=== PATIENT | female | born 1970 | race Caucasian/White ===

== ENCOUNTER 2017-08-28 09:41 | Emergency (ER) | payer OTHER ==
[~2017-08-28] VITALS: Ht 165.1 cm; Wt 91.2 kg
[~2017-08-28 09:41] MED LIST: ALBU90OI; ALBU90OI INH; AMIT25 PO; AMOCLA875 PO; Advil200 M1 PO; Antivert25 MG PO; BENZ.5 PO; BENZ100A PO; Bactrim Ds Tab1 EACH PO; CIPR500 PO; CIPRO500 MG PO; CLAR500 PO; CLON1 PO; CLON2 PO; CODGUAEL PO; CYCL10 PO; DULO30; DULO60 PO; Desyrel150 MG; ERGO50000 PO; ESCI20; ESTR1; ESTR2; ESTR2 PO; FLUV50 PO; HALO5 PO; HYDACE5 PO; HYDGUAL120 PO; HYDHCL25; HYDHCL25 PO; HYDR1TAB94 PO; Hydrocodone-Ap1 EA23 PO; IBUP600 PO; IBUP800 PO; LACT10SY PO; LAMO100; LAMO100 PO; LAVAP17G PO; LEVFLO500 PO; METPRE4DP PO; NAPR500 PO; Norco 5-325 Ta1 EACH PO; Nystatin15 GM TOP; OMEP40CA12 PO; OXYACE5T PO; Omeprazole20 M1 PO; PRAZ2 PO; PROACE100 PO; PROM25 PO; Prednisone20 MG PO; Promacta25 MG PO; QUDEXY XR100 MG PO; RANI150 PO; RXOXYACE PO; RXPROACE PO; Robaxin500 MG PO; SAPHRIS; SUCR1 PO; SULTRIDS PO; SULTRISS PO; TOPI100 PO; TRAM50 PO; TRAZ100 PO; TRAZ50; Ventolin/Prove6.7 GM INH
[2017-08-28] MEDS ORDERED: LATUDA80 MG (10:34)
[2017-08-28] MEDS ORDERED: LATUDA60 MG (10:34)
[2017-08-28] MEDS ORDERED: TRAZ50 (10:34)
[2017-08-28] MEDS ORDERED: RANI150 (10:34)
[2017-08-28] MEDS ORDERED: TOPI100 (10:34)
[2017-08-28] MEDS ORDERED: Cyclobenzaprine5 MG PO (11:05)
[2017-08-28] MEDS ORDERED: ALBU90OI INH (11:05)
== END 2017-08-28 11:14 | disposition home or self-care (01) ==
LOC: ER 09:41
DX: R05 Cough (principal); M54.6 Pain in thoracic spine; Z79.899 Other long term (current) drug therapy; Z88.8 Allergy status to other drugs, medicaments and biological substances; F31.9 Bipolar disorder, unspecified
CPT/HCPCS: 71046; 99283

== ENCOUNTER 2018-08-25 15:35 | Emergency (ER) | payer OTHER ==
[~2018-08-25] VITALS: Ht 165.1 cm; Wt 72.6 kg
[~2018-08-25 15:35] MED LIST changes: +Cyclobenzaprine5 MG PO; +LATUDA60 MG; +LATUDA80 MG; +RANI150; +TOPI100
[2018-08-25 16:11] LABS: BASOPHILS ABSOLUTE AUTO 0.04 K/mm3 (0.00-0.23); BASOPHILS PERCENT AUTO 0 % (0-2); EOSINOPHILS ABSOLUTE AUTO 0.13 K/mm3 (0.00-0.68); EOSINOPHILS PERCENT AUTO 1 % (0-6); Hematocrit 38.2 % (33.0-51.0); Hemoglobin 12.2 g/dL (11.5-16.0); IMMATURE GRAN ABSOLUTE AUTO 0.03 K/mm3 (0.00-0.10); IMMATURE GRAN PERCENT AUTO 0 % (0-1); LYMPHOCYTES ABSOLUTE AUTO 3.47 K/mm3 (0.84-5.20); LYMPHOCYTES PERCENT AUTO 35 % (21-46); MONOCYTES ABSOLUTE AUTO 0.52 K/mm3 (0.16-1.47); MONOCYTES PERCENT AUTO 5 % (4-13); Mean Corpuscular HGB 29.1 pg (26.0-34.0); Mean Corpuscular HGB Conc 31.9 g/dL (31.5-36.5); Mean Corpuscular Volume 91 fL (80-100); Mean Platelet Volume 9.8 fL (9.1-12.4); NEUTROPHILS ABSOLUTE AUTO 5.86 K/mm3 (1.96-9.15); NEUTROPHILS PERCENT AUTO 58 % (41-73); Platelet Count 320 K/mm3 (150-400); RDW Coefficient Variation 12.9 % (11.7-14.2); RDW Standard Deviation 43.2 fL (35.1-46.3); Red Blood Cell Count 4.19 M/mm3 (3.80-5.20); White Blood Cell Count 10.05 K/mm3 (4.00-11.30)
[2018-08-25 16:34] LABS: Source, Urine Clean Catch
[2018-08-25 16:36] LABS: Bilirubin, Urine Neg (Neg); Blood, Urine Neg (Neg); Glucose Qualitative, Urine Neg (Neg); Ketones, Urine Neg (Neg); Leukocyte Esterase, Urine 1+ (Neg); Nitrite, Urine Neg (Neg); Protein, Urine Neg (Neg); Specific Gravity, Urine 1.005 (1.003-1.022); Urobilinogen, Urine NORM (Normal)
[2018-08-25 16:39] LABS: Alanine Aminotransfer (ALT/SGP 29 U/L (12-78); Albumin, Blood 3.5 g/dL (3.4-5.0); Albumin/Globulin Ratio 1.1 (0.8-1.8); Alk Phos 71 U/L (50-136); Anion Gap 7 mmol/L (6-16); Aspartate Aminotrans (AST/SGOT 15 U/L (12-37); Bilirubin, Total 0.2 mg/dL (0.1-1.0); Blood Urea Nitrogen 8 mg/dL (8-24); Bun/Creatinine Ratio 8.8 (12.0-20.0); CO2, Blood 23 mmol/L (21-32); Chloride, Blood 111 mmol/L (98-108); Creatinine, Blood 0.91 mg/dL (0.40-1.00); Globulin, Blood 3.2 g/dL (2.2-4.0); Glomerular Filtration Rate >60 (60-); Glucose, Blood 89 mg/dL (70-99); Potassium, Blood 3.9 mmol/L (3.5-5.5); Sodium, Blood 141 mmol/L (136-145); Total Protein, Blood 6.7 g/dL (6.4-8.2)
[2018-08-25 16:43] LABS: Appearance, Urine Clear (Clear); Color, Urine Yellow (P-Yellow)
[2018-08-25 16:44] LABS: Red Blood Cells, Urine 0-2 /hpf (0-2); Squamous Epithelial Cells Few /hpf (Few); White Blood Cells, Urine 0-2 /hpf (0-5)
[2018-08-25 16:47] LABS: Bacteria Few /hpf
[2018-08-25] MEDS ORDERED: Bactrim Ds Tab1 EACH PO (16:57)
[2018-08-25] MEDS ORDERED: Zantac150 MG PO (16:57)
== END 2018-08-25 18:03 | disposition home or self-care (01) ==
LOC: ER 15:35
PROVIDERS: Physician Assistant
DX: N39.0 Urinary tract infection, site not specified (principal); R10.33 Periumbilical pain
CPT/HCPCS: 36415; 80053; 81001; 83690; 85025; 87086; 96360; 99283-25; J7030

== ENCOUNTER → 2018-09-08 | Outpatient (CLI) | payer OTHER ==
[~2018-09-08] MED LIST changes: +Zantac150 MG PO
== END ==
LOC: LAB 11:51 → LAB SHORT 11:51
DX: R39.89 Other symptoms and signs involving the genitourinary system (principal); Z87.440 Personal history of urinary (tract) infections
CPT/HCPCS: 87086

== ENCOUNTER 2018-10-02 13:01 | Emergency (ER) | payer OTHER ==
[~2018-10-02] VITALS: Ht 165.1 cm; Wt 72.1 kg
[2018-10-02] MEDS ORDERED: TOPI100 PO ×2 (16:48→17:04)
[2018-10-02] MEDS ORDERED: PRAZ1 PO (17:03)
[2018-10-02] MEDS ORDERED: Trazodone HCl300 MG PO (17:03)
[2018-10-02] MEDS ORDERED: LATUDA20 MG PO (17:03)
[2019-01-26] MEDS ORDERED: Ventolin/Prove6.7 GM INH (14:33)
[2019-01-26] MEDS ORDERED: ERGO50000 PO (14:34)
[2019-01-26] MEDS ORDERED: OMEPRAZOLE20 MG PO (14:34)
[2019-01-26] MEDS ORDERED: LATUDA80 MG PO (14:34)
[2019-01-26] MEDS ORDERED: CYCL10 PO (14:34)
[2019-01-26] MEDS ORDERED: TRAZ150T57 PO (14:35)
[2019-01-26] MEDS ORDERED: PRAZ1 PO (14:35)
[2019-01-26] MEDS ORDERED: TOPI100 PO (14:36)
== END 2018-10-02 19:34 | disposition home or self-care (01) ==
LOC: ER 13:01
DX: G43.909 Migraine, unspecified, not intractable, without status migrainosus (principal); Z88.8 Allergy status to other drugs, medicaments and biological substances; Z79.899 Other long term (current) drug therapy; F31.9 Bipolar disorder, unspecified; J45.909 Unspecified asthma, uncomplicated
CPT/HCPCS: 96372; 99283-25; J0780; J1100; Q0163

== ENCOUNTER 2019-02-02 11:40 | Day surgery (SDC) | payer OTHER ==
[~2019-02-02] VITALS: Ht 165.1 cm; Wt 66.8 kg
[~2019-02-02 11:40] MED LIST changes: +LATUDA20 MG PO; +LATUDA80 MG PO; +OMEPRAZOLE20 MG PO; +PRAZ1 PO; +TRAZ150T57 PO; +Trazodone HCl300 MG PO
== END 2019-02-02 13:40 | disposition home or self-care (01) ==
LOC: ORSCSDS 11:40
PROVIDERS: Internal Medicine Gastroenterology
PROC: 0DB58ZX Excision of Esophagus, Via Natural or Artificial Opening Endoscopic, Diagnostic (ICD-10-PCS; principal; 2019-02-02 13:00)
PROC: 0D757ZZ Dilation of Esophagus, Via Natural or Artificial Opening (ICD-10-PCS; principal; 2019-02-02 13:00)
DX: K22.70 Barrett's esophagus without dysplasia (principal); R10.13 Epigastric pain; K44.9 Diaphragmatic hernia without obstruction or gangrene; R13.19 Other dysphagia; J45.909 Unspecified asthma, uncomplicated; F32.9 Major depressive disorder, single episode, unspecified; Z79.899 Other long term (current) drug therapy
CPT/HCPCS: 88305; J2704; J7120

== ENCOUNTER 2020-09-23 09:14 | Day surgery (SDC) | payer OTHER ==
[~2020-09-23] VITALS: Ht 165.1 cm; Wt 68.2 kg
[~2020-09-23 09:14] MED LIST changes: +FERROUS SULFAT325 M3 PO; +LATUDA120 M1 PO; +Oxybutynin Chlo10 MG PO; +REXULTI0.5 MG PO; +VITAMIN D5000 UNIT PO
== END 2020-09-23 11:26 | disposition home or self-care (01) ==
LOC: ORSCSDS 09:14
PROVIDERS: Internal Medicine Gastroenterology
PROC: 0DJD8ZZ Inspection of Lower Intestinal Tract, Via Natural or Artificial Opening Endoscopic (ICD-10-PCS; principal; 2020-09-23 11:15)
DX: Z12.11 Encounter for screening for malignant neoplasm of colon (principal); Z86.010 Personal history of colon polyps; J45.909 Unspecified asthma, uncomplicated; K21.9 Gastro-esophageal reflux disease without esophagitis; E11.9 Type 2 diabetes mellitus without complications; Z79.899 Other long term (current) drug therapy
CPT/HCPCS: 82947; J2704; J7120

== ENCOUNTER → 2020-12-13 | Outpatient (CLI) | payer OTHER | END | disposition home or self-care (01) | LOC: LAB 16:00 → LAB SHORT 16:00 | DX: E55.9 Vitamin D deficiency, unspecified (principal) | CPT/HCPCS: 82306 ==

== ENCOUNTER → 2021-11-24 | Outpatient (CLI) | payer OTHER | END | disposition home or self-care (01) | LOC: LAB SHORT 13:57 → LAB 13:57 | DX: R10.9 Unspecified abdominal pain (principal) | CPT/HCPCS: 87338 ==

== ENCOUNTER 2021-12-06 13:15 | Emergency (ER) | payer OTHER ==
[~2021-12-06] VITALS: Ht 165.1 cm; Wt 71.7 kg
[2021-12-06 14:22] LABS: BASOPHILS ABSOLUTE AUTO 0.04 K/mm3 (0.00-0.23); BASOPHILS PERCENT AUTO 1 % (0-2); EOSINOPHILS ABSOLUTE AUTO 0.12 K/mm3 (0.00-0.68); EOSINOPHILS PERCENT AUTO 2 % (0-6); Hematocrit 37.1 % (33.0-51.0); Hemoglobin 12.4 g/dL (11.5-16.0); IMMATURE GRAN ABSOLUTE AUTO 0.02 K/mm3 (0.00-0.10); IMMATURE GRAN PERCENT AUTO 0 % (0-1); LYMPHOCYTES ABSOLUTE AUTO 3.01 K/mm3 (0.84-5.20); LYMPHOCYTES PERCENT AUTO 38 % (21-46); MONOCYTES PERCENT AUTO 5 % (4-13); Mean Corpuscular HGB 29.3 pg (26.0-34.0); Mean Corpuscular HGB Conc 33.4 g/dL (31.5-36.5); Mean Corpuscular Volume 88 fL (80-100); Mean Platelet Volume 9.6 fL (9.1-12.4); NEUTROPHILS ABSOLUTE AUTO 4.24 K/mm3 (1.96-9.15); NEUTROPHILS PERCENT AUTO 54 % (41-73); Platelet Count 273 K/mm3 (150-400); RDW Coefficient Variation 13.1 % (11.7-14.2); Red Blood Cell Count 4.23 M/mm3 (3.80-5.20); White Blood Cell Count 7.83 K/mm3 (4.00-11.30)
[2021-12-06 14:38] LABS: Albumin, Blood 3.5 g/dL (3.4-5.0); Albumin/Globulin Ratio 1.2 (0.8-1.8); Bilirubin, Total 0.3 mg/dL (0.1-1.0); Bun/Creatinine Ratio 22.3 (12.0-20.0); Calcium, Blood 8.8 mg/dL (8.5-10.1); Creatinine, Blood 0.81 mg/dL (0.40-1.00); Globulin, Blood 2.8 g/dL (2.2-4.0); Total Protein, Blood 6.3 g/dL (6.4-8.2)
[2021-12-06 15:35] LABS: Source, Urine Clean Catch
[2021-12-06 15:47] LABS: Appearance, Urine Clear (Clear); Bilirubin, Urine Neg (Neg); Blood, Urine Neg (Neg); Color, Urine Yellow (P-Yellow); Glucose Qualitative, Urine Neg (Neg); Ketones, Urine Neg (Neg); Leukocyte Esterase, Urine Neg (Neg); Nitrite, Urine Neg (Neg); Protein, Urine Neg (Neg); Specific Gravity, Urine 1.015 (1.003-1.022); Urobilinogen, Urine NORM (Normal)
[2021-12-06] MEDS ORDERED: CITRATE OF MAG PO (17:00)
[2021-12-06] MEDS ORDERED: DULCOLAX5 MG PO (17:00)
== END 2021-12-06 17:17 | disposition home or self-care (01) ==
LOC: ER 13:15
PROVIDERS: Physician Assistant
DX: K59.00 Constipation, unspecified (principal); R11.0 Nausea; Z79.899 Other long term (current) drug therapy
CPT/HCPCS: 36415; 74018; 80053; 81003; 83690; 85025; 99284-25

== ENCOUNTER 2022-03-05 11:16 | Emergency (ER) | payer OTHER ==
[~2022-03-05] VITALS: Ht 165.1 cm; Wt 72.6 kg
[~2022-03-05 11:16] MED LIST changes: +BUPR75; +CITRATE OF MAG PO; +DULCOLAX5 MG PO; +TOPI15C
[2022-03-05 12:09] LABS: Source, Urine Clean Catch
[2022-03-05 12:43] LABS: Appearance, Urine Cloudy (Clear); Bilirubin, Urine Neg (Neg); Blood, Urine Neg (Neg); Color, Urine Yellow (P-Yellow); Glucose Qualitative, Urine Neg (Neg); Ketones, Urine Neg (Neg); Leukocyte Esterase, Urine Neg (Neg); Nitrite, Urine Neg (Neg); Protein, Urine Neg (Neg); Specific Gravity, Urine 1.015 (1.003-1.022); Urobilinogen, Urine NORM (Normal)
[2022-03-05 13:06] LABS: Red Blood Cells, Urine 0-2 /hpf (0-2); White Blood Cells, Urine 0-2 /hpf (0-5)
[2022-03-05 13:07] LABS: Amorphous Heavy (0-Heavy); Bacteria Rare /hpf; Squamous Epithelial Cells Rare /hpf (Few)
[2022-03-05] MEDS ORDERED: NITR100CA PO (13:25)
== END 2022-03-05 13:32 | disposition home or self-care (01) ==
LOC: ER 11:16
PROVIDERS: Physician Assistant
DX: N39.0 Urinary tract infection, site not specified (principal); J45.909 Unspecified asthma, uncomplicated; Z88.8 Allergy status to other drugs, medicaments and biological substances; Z88.1 Allergy status to other antibiotic agents; Z79.899 Other long term (current) drug therapy
CPT/HCPCS: 81001; A9270

== ENCOUNTER → 2022-09-05 | Outpatient (CLI) | payer OTHER ==
[~2022-09-05] MED LIST changes: +NITR100CA PO
[2022-09-05 14:35] LABS: Source, Urine Clean Catch
[2022-09-05 17:01] LABS: Calcium Oxalate Crystals Many /hpf
[2022-09-05 17:02] LABS: Amorphous Light (0-Heavy); Bacteria Few /hpf; Red Blood Cells, Urine 0-2 /hpf (0-2); Squamous Epithelial Cells Not Seen /hpf (Few); White Blood Cells, Urine 0-2 /hpf (0-5)
== END ==
LOC: LAB 14:33 → LAB SHORT 14:33
PROVIDERS: Student in an Organized Health Care Education/Training Program
DX: N39.3 Stress incontinence (female) (male) (principal); M54.50 Low back pain, unspecified
CPT/HCPCS: 81015; 87086

== ENCOUNTER 2022-09-16 12:51 | Emergency (ER) | payer OTHER ==
[~2022-09-16] VITALS: Ht 165.1 cm; Wt 67.1 kg
[2022-09-16 13:17] LABS: BASOPHILS ABSOLUTE AUTO 0.04 K/mm3 (0.00-0.23); BASOPHILS PERCENT AUTO 1 % (0-2); EOSINOPHILS ABSOLUTE AUTO 0.09 K/mm3 (0.00-0.68); EOSINOPHILS PERCENT AUTO 1 % (0-6); Hematocrit 41.1 % (33.0-51.0); Hemoglobin 13.6 g/dL (11.5-16.0); IMMATURE GRAN ABSOLUTE AUTO 0.01 K/mm3 (0.00-0.10); IMMATURE GRAN PERCENT AUTO 0 % (0-1); LYMPHOCYTES ABSOLUTE AUTO 2.46 K/mm3 (0.84-5.20); LYMPHOCYTES PERCENT AUTO 35 % (21-46); MONOCYTES ABSOLUTE AUTO 0.34 K/mm3 (0.16-1.47); MONOCYTES PERCENT AUTO 5 % (4-13); Mean Corpuscular HGB 29.3 pg (26.0-34.0); Mean Corpuscular HGB Conc 33.1 g/dL (31.5-36.5); Mean Corpuscular Volume 89 fL (80-100); NEUTROPHILS ABSOLUTE AUTO 4.19 K/mm3 (1.96-9.15); NEUTROPHILS PERCENT AUTO 59 % (41-73); Platelet Count 288 K/mm3 (150-400); RDW Coefficient Variation 13.3 % (11.7-14.2); RDW Standard Deviation 43.5 fL (35.1-46.3); Red Blood Cell Count 4.64 M/mm3 (3.80-5.20); White Blood Cell Count 7.13 K/mm3 (4.00-11.30)
[2022-09-16 13:37] LABS: Albumin, Blood 3.9 g/dL (3.4-5.0); Albumin/Globulin Ratio 1.3 (0.8-1.8); Bilirubin, Total 0.5 mg/dL (0.1-1.0); Bun/Creatinine Ratio 13.9 (12.0-20.0); Calcium, Blood 9.5 mg/dL (8.5-10.1); Creatinine, Blood 0.93 mg/dL (0.40-1.00); Potassium, Blood 4.1 mmol/L (3.5-5.5); Total Protein, Blood 6.9 g/dL (6.4-8.2)
[2022-09-16 13:44] LABS: Source, Urine Clean Catch
[2022-09-16 13:49] LABS: Bilirubin, Urine Neg (Neg); Blood, Urine Neg (Neg); Glucose Qualitative, Urine Neg (Neg); Ketones, Urine 1+ (Neg); Leukocyte Esterase, Urine Neg (Neg); Nitrite, Urine Neg (Neg); Protein, Urine Neg (Neg); Specific Gravity, Urine 1.025 (1.003-1.022); Urobilinogen, Urine NORM (Normal)
[2022-09-16 13:51] LABS: Appearance, Urine Clear (Clear); Color, Urine Yellow (P-Yellow)
[2022-09-16 15:52] VITALS: BP 119/61
== END 2022-09-16 15:57 | disposition home or self-care (01) ==
LOC: ER 12:51
PROVIDERS: Physician Assistant
DX: R10.11 Right upper quadrant pain (principal); Z88.8 Allergy status to other drugs, medicaments and biological substances; Z79.899 Other long term (current) drug therapy
CPT/HCPCS: 74177; 76705; 80053; 81003; 83690; 85025; J7030; Q9967

== ENCOUNTER 2023-11-12 10:31 | Observation (INO) | payer OTHER ==
[~2023-11-12] VITALS: Ht 162.6 cm; Wt 72.1 kg
[~2023-11-12 10:31] MED LIST changes: -TOPI15C; +TOPI15C PO
[2023-11-12 11:32] LABS: BASOPHILS ABSOLUTE AUTO 0.04 K/mm3 (0.00-0.23); BASOPHILS PERCENT AUTO 1 % (0-2); EOSINOPHILS ABSOLUTE AUTO 0.11 K/mm3 (0.00-0.68); EOSINOPHILS PERCENT AUTO 2 % (0-6); Hematocrit 37.2 % (33.0-51.0); Hemoglobin 12.3 g/dL (11.5-16.0); IMMATURE GRAN ABSOLUTE AUTO 0.02 K/mm3 (0.00-0.10); IMMATURE GRAN PERCENT AUTO 0 % (0-1); LYMPHOCYTES PERCENT AUTO 35 % (21-46); MONOCYTES PERCENT AUTO 6 % (4-13); Mean Corpuscular HGB 29.1 pg (26.0-34.0); Mean Corpuscular HGB Conc 33.1 g/dL (31.5-36.5); Mean Corpuscular Volume 88 fL (80-100); Mean Platelet Volume 9.4 fL (9.1-12.4); NEUTROPHILS ABSOLUTE AUTO 3.57 K/mm3 (1.96-9.15); NEUTROPHILS PERCENT AUTO 56 % (41-73); Platelet Count 264 K/mm3 (150-400); RDW Coefficient Variation 12.7 % (11.7-14.2); Red Blood Cell Count 4.22 M/mm3 (3.80-5.20); White Blood Cell Count 6.34 K/mm3 (4.00-11.30)
[2023-11-12 11:39] LABS: Albumin, Blood 3.3 g/dL (3.4-5.0); Albumin/Globulin Ratio 1.1 (0.8-1.8); Bilirubin, Total 0.2 mg/dL (0.1-1.0); Bun/Creatinine Ratio 23.1 (12.0-20.0); Potassium, Blood 3.9 mmol/L (3.5-5.5); Total Protein, Blood 6.3 g/dL (6.4-8.2)
[2023-11-12] MEDS ORDERED: Aspirin 325 MG Tab PO ONE (15:35)
[2023-11-12] MEDS ORDERED: Ondansetron HCl 2 MG / ML 2ML Vial IV PRN (16:20)
[2023-11-12] MEDS ORDERED: Acetaminophen 325 MG TABLET PO PRN (16:25)
[2023-11-12] MEDS ORDERED: TraZODone HCl 100 MG Tab PO PRN (17:25)
[2023-11-12] MEDS ORDERED: ARIPiprazole 5 MG Tab PO SCH (18:00)
[2023-11-12] MEDS ORDERED: Prazosin HCl 1 MG Cap PO SCH (18:00)
[2023-11-12] MEDS ORDERED: Topiramate 100 MG Tab PO SCH (18:00)
[2023-11-12] MEDS ORDERED: Docusate Sodium 100 MG Cap PO SCH (21:00)
[2023-11-12] MEDS ORDERED: oxyBUTYnin chloride 5 MG TAB PO SCH (21:00)
[2023-11-12 21:10] VITALS: BP 98/68
[2023-11-12] MEDS ORDERED: TRAZ100 PO (21:17)
[2023-11-12] MEDS ORDERED: REXULTI4 MG PO (21:17)
[2023-11-12] MEDS ORDERED: TOPI100 PO (21:20)
--- NOTE | 2023-11-12 22:38 | NUR ---
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 PT. ARRIVED VIA W/C AND A TRANSPORTER TO THE MEDICAL FLOOR, ROOM [id number]. PT.DENIES PAIN, SOB, N/V, OR ANY DISCOMFORT AT THIS TIME. PT. WAS COVERED WITH MULTIPLE BLANKETS AND HAD A SANDWICH AN EVENING SNACK. NO COMPLAINTS AT THIS TIME, PT. IS A&O X4,PLEASANT, COOP WITH CARE, AND ABLE TO MAKE HER NEEDS KNOWN. PT WAS EDUCATED HOW TO USE THE CALL LIGHT, AND FALL PRECAUTIONS. NO IGNITION ITEMS IN HER POSSESSION. PT'S SKIN IS CLEAR.
--- NOTE | 2023-11-13 03:03 | NUR ---
SHIFT SUMMARY PT. HAS RESTED EYES CLOSED, RR EVEN AND UNLABORED SINCE ADMITTED AND TRANSFERRED TO MEDICAL FLOOR LAST NIGHT. PT. DID MENTION SHE DOES NOT TAKE COLACE OR DITROPAN A HOME MEDICATION, (SEE EMAR-REFUSED AT HS 2100.) NO ACUTE EVENTS/DISTRESS DURING THIS SHIFT. WILL HANDOFF TO THE INCOMING SHIFT NURSE. BED AT THE LOWEST POSITION, CALL LIGHT WITHIN REACH.
[2023-11-13 03:16] VITALS: BP 94/52
[2023-11-13 04:40] LABS: BASOPHILS ABSOLUTE AUTO 0.03 K/mm3 (0.00-0.23); BASOPHILS PERCENT AUTO 1 % (0-2); EOSINOPHILS ABSOLUTE AUTO 0.14 K/mm3 (0.00-0.68); EOSINOPHILS PERCENT AUTO 2 % (0-6); Hematocrit 36.7 % (33.0-51.0); Hemoglobin 12.1 g/dL (11.5-16.0); IMMATURE GRAN ABSOLUTE AUTO 0.01 K/mm3 (0.00-0.10); IMMATURE GRAN PERCENT AUTO 0 % (0-1); LYMPHOCYTES ABSOLUTE AUTO 2.62 K/mm3 (0.84-5.20); LYMPHOCYTES PERCENT AUTO 41 % (21-46); MONOCYTES ABSOLUTE AUTO 0.42 K/mm3 (0.16-1.47); MONOCYTES PERCENT AUTO 7 % (4-13); Mean Corpuscular HGB 29.2 pg (26.0-34.0); Mean Corpuscular Volume 88 fL (80-100); Mean Platelet Volume 9.5 fL (9.1-12.4); NEUTROPHILS ABSOLUTE AUTO 3.13 K/mm3 (1.96-9.15); NEUTROPHILS PERCENT AUTO 49 % (41-73); Platelet Count 258 K/mm3 (150-400); RDW Coefficient Variation 12.9 % (11.7-14.2); RDW Standard Deviation 41.5 fL (35.1-46.3); Red Blood Cell Count 4.15 M/mm3 (3.80-5.20); White Blood Cell Count 6.35 K/mm3 (4.00-11.30)
[2023-11-13 05:39] LABS: Bun/Creatinine Ratio 20.7 (12.0-20.0); Calcium, Blood 8.7 mg/dL (8.5-10.1); Creatinine, Blood 0.97 mg/dL (0.40-1.00); Potassium, Blood 4.1 mmol/L (3.5-5.5); Thyroid Stimulating Hormone 2.28 uIU/mL (0.360-4.800)
[2023-11-13 07:18] VITALS: BP 104/66
[2023-11-13] MEDS ORDERED: Enoxaparin 40 MG/0.4 ML SYR SC SCH (09:00)
[2023-11-13 10:33] VITALS: BP 109/62
[2023-11-13 10:35] VITALS: BP 93/66
[2023-11-13 10:37] VITALS: BP 102/59
[2023-11-13] MEDS ORDERED: Acetaminophen325 M1 PO (11:19)
--- NOTE | 2023-11-13 13:19 | NUR ---
PT DISCHARGED TO HOME, PT VERBALIZED UNDERSTANDING OF DISCHARGE INSTRUCTIONS, ZIO PATCH PLACED PRIOR TO DISCHARGE, PT DECLINED A WHEELCHAIR AND WAS ABLE TO AMBULATE SAFELY TO THE ELEVATOR
== END 2023-11-13 13:20 | disposition home or self-care (01) ==
LOC: ER 10:31 → MEDS 10:32 → ENPENDDIS 11-13 12:54 → MEDS 11-13 13:20
PROVIDERS: Student in an Organized Health Care Education/Training Program; ADMIT Internal Medicine
DX: R55 Syncope and collapse (principal); R00.1 Bradycardia, unspecified; F31.9 Bipolar disorder, unspecified; M79.7 Fibromyalgia; Z88.1 Allergy status to other antibiotic agents; Z88.8 Allergy status to other drugs, medicaments and biological substances; Z91.048 Other nonmedicinal substance allergy status; Z79.899 Other long term (current) drug therapy
CPT/HCPCS: 36415; 70450; 70496; 70498; 80048; 80053; 83735; 83880; 84443; 84484; 85025; 93005; 93010; 93246; 96372; 99285-25; A9270; C8929; G0378; J1650; Q9957; Q9967

== ENCOUNTER 2024-07-15 11:16 | Emergency (ER) | payer OTHER ==
[~2024-07-15] VITALS: Ht 165.1 cm; Wt 80.7 kg
[~2024-07-15 11:16] MED LIST changes: +Acetaminophen325 M1 PO; +REXULTI4 MG PO
[2024-07-15] MEDS ORDERED: Ondansetron HCl 2 MG / ML 2ML Vial IV ONE (11:45)
[2024-07-15] MEDS ORDERED: Ketorolac Tromethamine 15mg Vial IV ONE (11:45)
[2024-07-15 12:48] LABS: BASOPHILS ABSOLUTE AUTO 0.03 K/mm3 (0.00-0.23); BASOPHILS PERCENT AUTO 1 % (0-2); EOSINOPHILS PERCENT AUTO 2 % (0-6); Hematocrit 39.8 % (33.0-51.0); Hemoglobin 13.3 g/dL (11.5-16.0); IMMATURE GRAN ABSOLUTE AUTO 0.03 K/mm3 (0.00-0.10); IMMATURE GRAN PERCENT AUTO 1 % (0-1); LYMPHOCYTES ABSOLUTE AUTO 2.46 K/mm3 (0.84-5.20); LYMPHOCYTES PERCENT AUTO 37 % (21-46); MONOCYTES ABSOLUTE AUTO 0.28 K/mm3 (0.16-1.47); MONOCYTES PERCENT AUTO 4 % (4-13); Mean Corpuscular HGB 29.8 pg (26.0-34.0); Mean Corpuscular HGB Conc 33.4 g/dL (31.5-36.5); Mean Corpuscular Volume 89 fL (80-100); Mean Platelet Volume 9.9 fL (9.1-12.4); NEUTROPHILS ABSOLUTE AUTO 3.74 K/mm3 (1.96-9.15); NEUTROPHILS PERCENT AUTO 56 % (41-73); Platelet Count 310 K/mm3 (150-400); RDW Coefficient Variation 13.3 % (11.7-14.2); Red Blood Cell Count 4.46 M/mm3 (3.80-5.20); White Blood Cell Count 6.64 K/mm3 (4.00-11.30)
[2024-07-15 13:04] LABS: Albumin, Blood 3.5 g/dL (3.4-5.0); Albumin/Globulin Ratio 1.1 (0.8-1.8); Bilirubin, Total 0.5 mg/dL (0.1-1.0); Bun/Creatinine Ratio 13.9 (12.0-20.0); Calcium, Blood 9.1 mg/dL (8.5-10.1); Creatinine, Blood 0.94 mg/dL (0.40-1.00); Globulin, Blood 3.2 g/dL (2.2-4.0); Potassium, Blood 4.1 mmol/L (3.5-5.5); Total Protein, Blood 6.7 g/dL (6.4-8.2)
[2024-07-15 13:12] LABS: Source, Urine Clean Catch
[2024-07-15 13:18] LABS: Appearance, Urine Hazy (Clear); Bilirubin, Urine Neg (Neg); Blood, Urine Neg (Neg); Color, Urine Yellow (P-Yellow); Glucose Qualitative, Urine Neg (Neg); Ketones, Urine Neg (Neg); Leukocyte Esterase, Urine 1+ (Neg); Nitrite, Urine Neg (Neg); Protein, Urine Neg (Neg); Urobilinogen, Urine NORM (Normal)
[2024-07-15 13:48] LABS: Amorphous Mod (0-Heavy); Bacteria Mod /hpf; Mucus Mod (0-Heavy); Red Blood Cells, Urine 0-2 /hpf (0-2); Squamous Epithelial Cells Few /hpf (Few); Transitional Epithelial Cells Rare /hpf (0-Rare)
[2024-07-15] MEDS ORDERED: ONDA4ODT MM (13:57)
[2024-07-15 14:39] VITALS: BP 112/84
== END 2024-07-15 14:41 | disposition home or self-care (01) ==
LOC: ER 11:16
PROVIDERS: Emergency Medicine
DX: R10.9 Unspecified abdominal pain (principal); R11.0 Nausea; J45.909 Unspecified asthma, uncomplicated; Z88.1 Allergy status to other antibiotic agents; Z88.8 Allergy status to other drugs, medicaments and biological substances; Z79.899 Other long term (current) drug therapy
CPT/HCPCS: 76770; 80053; 81001; 83690; 85025; 87077; 87086; 87186; 96374; 96375; 99284-25; J1885

== ENCOUNTER → 2024-08-13 | Outpatient (CLI) | payer OTHER ==
[~2024-08-13] MED LIST changes: +ONDA4ODT MM
[2024-08-13 15:29] LABS: Source, Urine Clean Catch
[2024-08-13 17:32] LABS: Appearance, Urine Clear (Clear); Bilirubin, Urine Neg (Neg); Blood, Urine Neg (Neg); Color, Urine Yellow (P-Yellow); Glucose Qualitative, Urine Neg (Neg); Ketones, Urine Neg (Neg); Leukocyte Esterase, Urine Neg (Neg); Nitrite, Urine Neg (Neg); Protein, Urine 1+ (Neg); Specific Gravity, Urine 1.025 (1.003-1.022); Urobilinogen, Urine NORM (Normal)
[2024-08-13 17:48] LABS: Amorphous Light (0-Heavy); Bacteria Rare /hpf; Red Blood Cells, Urine Not Seen /hpf (0-2); Squamous Epithelial Cells Rare /hpf (Few); White Blood Cells, Urine 0-2 /hpf (0-5)
== END ==
LOC: LAB 15:26 → LAB SHORT 15:26
PROVIDERS: Family Medicine
DX: R10.9 Unspecified abdominal pain (principal)
CPT/HCPCS: 81001

== ENCOUNTER → 2024-08-27 | Outpatient (CLI) | payer OTHER ==
[2024-09-02 14:34] LABS: CALCIUM, URINE - PER 24H 22 mg/d (100-250); CALCIUM, URINE - PER VOLUME 0.9 mg/dL; CHLORIDE, URINE - PER 24H <48 mmol/d (140-250); CHLORIDE, URINE - PER VOLUME <20 mmol/L; CITRIC ACID, URINE - PER 24H 91 mg/d (320-1240); CITRIC ACID,URINE - PER VOLUME 38 mg/L; CREATININE, URINE - PER 24H 912 mg/d (500-1400); CREATININE, URINE - PER VOLUME 38 mg/dL; HOURS COLLECTED 24 hr; MAGNESIUM, URINE - PER VOLUME 2.4 mg/dL; MAGNESIUM, URINE PER 24H 58 mg/d (12-199); OXALATE, URINE - PER 24H 14 mg/d (13-40); OXALATE, URINE - PER VOLUME 6 mg/L; PH, URINE 6.94 (5.00-7.50); PHOSPHORUS, URINE - PER 24H 576 mg/d (400-1300); PHOSPHORUS, URINE - PER VOLUME 24 mg/dL; POTASSIUM, URINE - PER 24H 67 mmol/d (25-125); POTASSIUM, URINE - PER VOLUME 28 mmol/L; SODIUM, URINE - PER 24H <48 mmol/d (51-286); SODIUM, URINE - PER VOLUME <20 mmol/L; SULFATE, URINE - PER 24H < 5 mmol/d (6-30); SULFATE, URINE - PER VOLUME <5 mmol/L; TOTAL VOLUME 2400 mL; URIC ACID, URINE - PER 24H 269 mg/d (250-750); URIC ACID, URINE - PER VOLUME 11.2 mg/dL; URINE SUPERSATURATION INTERP Normal; URINE SUPERSATURATION, CAHPO4 0.42; URINE SUPERSATURATION, CAOX 0.36; URINE SUPERSATURATION, UA CALC 0.02
== END ==
LOC: LAB 11:22 → LAB SHORT 11:22 → LAB FUT 08-26 06:55 → EDSTATUS 08-26 06:55
PROVIDERS: Nurse Practitioner Acute Care
DX: N20.0 Calculus of kidney (principal)
CPT/HCPCS: 81003; 81050; 82131; 82140; 82340; 82436; 82507; 82570; 83735; 83935; 83945; 84105; 84133; 84300; 84392; 84560

== ENCOUNTER 2025-03-21 08:24 | Emergency (ER) | payer OTHER ==
[~2025-03-21] VITALS: Ht 160 cm; Wt 74.8 kg
[~2025-03-21 08:24] MED LIST changes: +ASENAPINE MALEAT5 MG; +DIAZEPAM2 M2; +ESTRADIOL42.5 GM; +IBUP800; +POLYETHYLENE G500 G1
[2025-03-21] MEDS ORDERED: AMOX500 PO (08:44)
[2025-03-21 09:00] VITALS: BP 128/78
== END 2025-03-21 09:02 | disposition home or self-care (01) ==
LOC: ER 08:24
DX: J02.0 Streptococcal pharyngitis (principal); J45.909 Unspecified asthma, uncomplicated; Z88.1 Allergy status to other antibiotic agents; Z88.8 Allergy status to other drugs, medicaments and biological substances; Z79.899 Other long term (current) drug therapy
CPT/HCPCS: 87430; 99283